=== PATIENT | female | born 1960 | race Caucasian/White ===

== ENCOUNTER → 2016-08-19 | Outpatient (CLI) | payer OTHER ==
--- NOTE | 2016-08-19 13:03 | DIAGNOSTIC IMAGING REPORT ---
LEFT KNEE 4 VIEWS INCLUDING BILATERAL STANDING AP VIEWS CLINICAL HISTORY: Left knee pain COMPARISON: None. DISCUSSION: No acute fractures are visualized. There is a tiny lucency visualized within the medial femoral condyle and standing AP view. This may represent a tiny subchondral cyst or tiny osteochondral defect. IMPRESSION: 1. No acute fractures 2. 3 mm subchondral lucency within the medial femoral condyle. Electronically signed by: Dima Bobo M.D. 08/19/2016 1:01 PM Dictated Date/Time: 08/19/2016 1:00 PM
== END | disposition home or self-care (01) ==
LOC: C.RDSM 10:34
PROVIDERS: ATTEND Family Medicine
DX: M25.562 Pain in left knee (principal)